=== PATIENT | female | born 1975 | race Caucasian/White ===

== ENCOUNTER 2017-02-12 15:15 | Emergency (ER) | payer BC ==
[2017-02-12 15:43] VITALS: BP 214/100
[2017-02-12] MEDS ORDERED: Aspirin Low Dose CHEW TAB* 81 MG ONE (15:47)
--- NOTE | 2017-02-12 16:01 | UC ---
UC General HPI - HPI Summary HPI Summary: Patient presents with an unremarkable past medical history. She states she gives blood every three months and her blood pressure was elevated and she couldn't give blood. She also states that [place] She is otherwise feeling well and had been asymptomatic. Denies fever, chills, persistent headache, chest pain, blurred vision, nausea or weakness. She verifies that is her blood pressure wasn't taken she would not have know it was elevated. - History of Current Complaint Chief Complaint: UCGeneralIllness Stated Complaint: HIGH BLOOD PRESSURE Time Seen by Provider: 02/12/17 15:52 Hx Obtained From: Patient Hx Last Menstrual Period: 02/03/17 - Allergy/Home Medications Allergies/Adverse Reactions: Allergies Allergy/AdvReac Type Severity Reaction Status Date / Time No Known Allergies Allergy Verified 02/12/17 15:43 Home Medications: Home Medications Acetaminophen [Tylenol] 325 mg PO Q4H PRN 02/12/17 [History Confirmed 02/12/17] Ibuprofen [Ibuprofen 200 MG] 200 mg PO Q6H PRN 02/12/17 [History Confirmed 02/12] PMH/Surg Hx/FS Hx/Imm Hx Previously Healthy: Yes - Surgical History Surgical History: Yes Surgery Procedure, Year, and Place: Csection - Family History Known Family History: Positive: Cardiac Disease, Hypertension - Social History Occupation: Employed Full-time Lives: With Family Alcohol Use: Occasionally Substance Use Type: None Smoking Status (MU): Never Smoked Tobacco - Immunization History Most Recent Influenza Vaccination: fall 2015 Review of Systems All Other Systems Reviewed And Are Negative: Yes Physical Exam Triage Information Reviewed: Yes Appearance: Well-Appearing Vital Signs: Initial Vital Signs Temp 98.8 F 02/12/17 15:38 Pulse 106 02/12/17 15:38 Resp 16 02/12/17 15:38 BP 214/100 02/12/17 15:38 Pulse Ox 97 02/12/17 15:38 Vital Signs Reviewed: Yes Eye Exam: Normal ENT Exam: Normal Course/Dx - Course Course Of Treatment: Patient presents with asymptomatic HTN, EKG was obtained and SR, and UA ws negative for proteinuria. She was encouraged to take her BP twice daily for 5 days then f/u with pcp for recommendations. If for any reason she develops any other worrisome symtpons she was directed to go to ER. We discussed chest pain, chang, blurred vision, neck, shoulder, or jaw pain. She verbalzied understanding of the discharge instructions. - Differential Dx - Multi-Symptom Differential Diagnoses: Other - htn Provider Diagnoses: htn Discharge - Discharge Plan Condition: Stable Disposition: HOME Patient Education Materials: Chronic Hypertension (ED) Referrals: No Primary Care Phys,NOPCP [Primary Care Provider] -
== END 2017-02-12 16:56 | disposition home or self-care (01) ==
LOC: UCEAST 15:15
DX: I11.9 Hypertensive heart disease without heart failure (principal)
CPT/HCPCS: 81003; 93005; 99201; A9270-GY; G0463